=== PATIENT | female | born 1975 | race Caucasian/White ===

== ENCOUNTER 2017-05-06 00:38 | Emergency (ER) | payer OTHER ==
[2017-05-06 00:52] VITALS: BP 120/78; PULSE 70; RESP 16; TEMP 97.4; O2SAT 98
[2017-05-06] MEDS ORDERED: Absorbable Gelatin Sponge Size 12-7 ONE (01:08)
--- NOTE | 2017-05-06 01:13 | ED PDOC ---
HPI: Skin/Bite Injury Time Seen by Provider: 05/06/17 01:08 Chief Complaint (Nursing): Abnormal Skin Integrity Chief Complaint (Provider): laceration History Per: Patient History/Exam Limitations: no limitations Additional Complaint(s): 41 yo F in ED for eval of laceration sustained to left index DIP today at 2pm. pt is uptodate with tetatus. no numbness. mild active bleeding sustained it via a vegetable paz Past Medical History Reviewed: Historical Data, Nursing Documentation, Vital Signs Vital Signs: Last Vital Signs Temp 97.4 F L 05/06/17 00:49 Pulse 70 05/06/17 00:49 Resp 16 05/06/17 00:49 BP 120/78 05/06/17 00:49 Pulse Ox 98 05/06/17 00:49 - Medical History PMH: No Chronic Diseases - Family History Family History: States: No Known Family Hx - Allergies Allergies/Adverse Reactions: Allergies Allergy/AdvReac Type Severity Reaction Status Date / Time No Known Allergies Allergy Verified 05/06/17 00:52 Review of Systems ROS Statement: Except As Marked, All Systems Reviewed And Found Negative Musculoskeletal: Positive for: Hand Pain Physical Exam - Reviewed Nursing Documentation Reviewed: Yes Vital Signs Reviewed: Yes - Physical Exam Appears: Positive for: Well, Non-toxic, No Acute Distress Skin: Positive for: Normal Color, Warm (left hand: index finger DIP latteral side with avulsion <5mm. mild bleeding no swelling nuerovasc intact. ) Cardiovascular/Chest: Positive for: Regular Rate, Rhythm Respiratory: Positive for: CNT, Normal Breath Sounds Neurologic/Psych: Positive for: Alert, Oriented - ECG O2 Sat by Pulse Oximetry: 98 Medical Decision Making Medical Decision Making: wound cleaned with NS gelfoam applied advised to f.u [facility] pmd. Disposition - Clinical Impression Clinical Impression: Avulsion, skin - Patient ED Disposition Is Patient to be Admitted: No - Disposition Disposition: Routine/Home Disposition Time: :22 Condition: STABLE Instructions: Skin Avulsion (ED)
== END 2017-05-06 01:57 | disposition home or self-care (01) ==
LOC: H.ER 00:38
DX: S61.221A Laceration with foreign body of left index finger without damage to nail, initial encounter (principal); W26.8XXA Contact with other sharp object(s), not elsewhere classified, initial encounter; Y92.89 Other specified places as the place of occurrence of the external cause